=== PATIENT | male | born 1970 | race Caucasian/White ===

== ENCOUNTER 2016-10-14 15:42 | Emergency (ER) | payer OTHER ==
[~2016-10-14] VITALS: Ht 172.7 cm; Wt 86.2 kg
[~2016-10-14 15:42] MED LIST: BICALUTAMIDE50 M1 PO; CALCIUM600 M2 PO; CEFAZOLIN2 GM/100 M IV; DEXAMETHASONE4 M1 PO; NYSTATIN100000 UNI PO; OMEPRAZOLE20 M2 PO; ONDANSETRON HCL8 MG PO; PERCOCET 5-3251 EACH PO; PERIDEX473 ML PO; TAMSULOSIN HCL0.4 M1 PO; VITAMIN A & D56.7 GM TOP; VITAMIN D3400 UNI1 PO
[2016-10-14 15:50] VITALS: BP 115/80
--- NOTE | 2016-10-14 16:42 | ED ANKLE/FOOT INJURY COMPLAINT ---
History of Present Illness General Chief Complaint: Lower Extremity Problems Stated Complaint: PT HURT HIS LT FOOT Source: patient Exam Limitations: no limitations Vital Signs & Intake/Output Vital Signs & Intake/Output Vital Signs Date Time Temp Pulse Resp B/P B/P Pulse O2 O2 Flow FiO2 Mean Ox Delivery Rate 10/14 1550 97.1 82 16 115/80 96 Room Air Allergies Coded Allergies: No Known Drug Allergies (12/26/15) Reconcile Medications Hydrocodone/Acetaminophen (Hydrocodon-Acetaminophen 5-325) 5 MG-325 MG TABLET 1-2 TAB PO Q4-6 PRN PRN pain Indomethacin 50 MG CAPSULE 1 CAP PO TID pain with food Methylprednisolone. (Medrol) 4 MG TAB.DS.PK 1 DP PO AD gouty 6 on day 1 then reduce by one tablet daily until gone Pantoprazole Sodium 40 MG TABLET.DR 1 TAB PO PRN GI (Reported) Triage Note: PT STATES HIS LEFT FOOT IS "KILLING HIM". BUT STATES HIS BUNION HAS BEEN KILLING HIM STATES SINCE YESTERDAY HE WAS HAVING TROUBLE STANDING ON HIS FOOT. PT DENIES ANY INJURY Triage Nurses Notes Reviewed? yes Occurred: just prior to arrival Duration: day(s):, constant, continues in ED Timing: recent history Severity: moderate, severe Pain/Injury Location: Left: 1st toe. Method of Injury: unknown No Modifying Factors: none HPI: 45 year male comes into emergency room with complaints of left great toe pain. Patient reports that he is had issues with this toe for many years since his early 20s. Patient has some swelling to the area with a mild amount of redness. Sharp pain. Continuous. Nonradiating. Denies any fever or chills. Denies any vomiting. Denies any prior history of gout. (TAE ERVIN) Past History Travel History Traveled to [place] past 21 day No Medical History Any Pertinent Medical History? see below for history Neurological: NONE EENT: NONE Cardiovascular: NONE Respiratory: NONE Gastrointestinal: GERD, hiatal hernia Hepatic: NONE Renal: NONE Musculoskeletal: NONE Psychiatric: NONE Endocrine: NONE Blood Disorders: NONE Cancer(s): prostate cancer, SPINE AND SKULL LESIONS PUBLIC HEALTH PHYSICIAN/Reproductive: NONE History of MRSA: No History of VRE: No History of CDIFF: No Surgical History Surgical History: HERNIA REPAIR Psychosocial History Who do you live with Significant Other What is your primary language Colombian Tobacco Use: Current Daily Use Daily Tobacco Use Amount/Type: => 5 Cigarettes daily ETOH Use: occasional use Illicit Drug Use: denies illicit drug use Family History Hx Contributory? No (TAE ERVIN) Review of Systems Review of Systems Constitutional: Reports: no symptoms. EENTM: Reports: no symptoms. Respiratory: Reports: no symptoms. Cardiovascular: Reports: no symptoms. GI: Reports: no symptoms. Genitourinary: Reports: no symptoms. Musculoskeletal: Reports: see HPI. Skin: Reports: see HPI. Neurological/Psychological: Reports: no symptoms. Hematologic/Endocrine: Reports: no symptoms. Immunologic/Allergic: Reports: no symptoms. All Other Systems: Reviewed and Negative (TAE ERVIN) Physical Exam Physical Exam General Appearance: well developed/nourished, mild distress Head: atraumatic Eyes: Bilateral: normal appearance. Ears, Nose, Throat: normal ENT inspection, hearing grossly normal Neck: normal inspection Cardiovascular/Respiratory: no respiratory distress Back: normal inspection Leg/Knee/Thigh Left: normal range of motion Ankle Left: normal inspection, normal range of motion Foot Left: soft tissue tenderness, swelling, mild erythema left great toe, full range of motion, tenderness over joint and with light touch is skin, no warmth, Neuro/Vascular: normal motor function, normal sensation Psychiatric: awake, alert, oriented x 3 Skin: intact, normal color, warm/dry (TAE ERVIN) Progress Differential Diagnosis: arterial insufficiency, cellulitis, septic arthritis, gout, fracture, sprain, contusion, compartmental syndrome Plan of Care: Orders Procedure Date/time Status XRY-FOOT COMPLETE, LEFT 10/14 1640 Active Diagnostic Imaging: Viewed by Me: Radiology Read. Discussed w/RAD: Radiology Read. Radiology Impression: EXAM TYPE: RAD - XRY-FOOT COMPLETE, LEFT EXAMINATION: XR FOOT, LEFT CLINICAL INFORMATION: Pain status post post trauma. COMPARISON: None TECHNIQUE: AP, lateral, and oblique views of the left foot. FINDINGS: Bone mineral density is maintained without evidence of fracture or dislocation. No focal osseous lesions are seen. There is moderate first MTP joint space narrowing with moderate-sized marginal osteophytes identified. IMPRESSION: First MTP degenerative changes. DICTATED BY: GITA SMITH MD DATE/TIME DICTATED:1699 HYDRO EXCAVATION OPERATOR:BRODY DATE/TIME TRANSCRIBED:10/14/161699 Comments: 10/14/2016 6:05:39 PM Patient clinically looks well. Patient is in no apparent distress. Patient is nontoxic-appearing. Patient is in no apparent distress. Symptoms are more consistent with acute gouty arthritis as opposed to septic joint. Characteristic is more consistent with out. Patient needs close follow-up. Told to return if any spreading of redness or fever chills body aches. Return if any other concerns. (KIT HADLEY,TAE) Departure Departure Disposition: HOME OR SELF CARE Condition: Stable Clinical Impression Primary Impression: Acute gouty arthritis Referrals: CALVIN ALDANA MD (PCP/Family) Additional Instructions: Take indomethacin, Medrol Dosepak, and Vicodin as prescribed. Follow-up with primary care doctor. Have recheck in 3-5 days. Return if any spreading of redness, fever, vomiting, or any other concerns worsening symptoms. Please go over all results of today's visit with your primary care doctor. Contact your primary care doctor to let them know you were here in the emergency room. There may be nonspecific findings which may not be related to your visit today here in the emergency room but may require further evaluation and chronic monitoring by your primary care doctor. If you had a laceration today the chance of foreign body always remains. You should follow-up with your primary care doctor for recheck in 3-5 days for a wound check. If you had an x-ray done there is a chance that a fracture could have been missed on initial read and you should follow-up with your primary care doctor for repeat x-rays if symptoms persist. If your blood pressure was elevated here in the emergency room please have rechecked by her primary care doctor within the next 48 hours by your primary care doctor. If you were prescribed a narcotic here in the emergency room or any type of controlled substances you're not allowed to drive while taking this medication or operate any type of heavy machinery. Narcotics can make you feel lightheaded dizziness nausea and can cause constipation. You may need to pickling tank operator a stool softener. Thank you for choosing [facility] emergency room. Please return to the emergency room immediately if you have any other concerns worsening of symptoms. Departure Forms: Customer Survey General Discharge Information Prescriptions: Current Visit Scripts Indomethacin 1 CAP PO TID #30 CAP with food Methylprednisolone. (Medrol) 1 DP PO AD #1 DP 6 on day 1 then reduce by one tablet daily until gone Hydrocodone/Acetaminophen (Hydrocodon-Acetaminophen 5-325) 1-2 TAB PO Q4-6 PRN PRN pain #10 TAB (TAE ERVIN) PA/SAW TAILER Co-Sign Statement Statement: ED Attending supervision documentation- [] I saw and evaluated the patient. I have also reviewed all the pertinent lab results and diagnostic results. I agree with the findings and the plan of care as documented in the PA's/SAW TAILER's documentation. [X] I have reviewed the ED Record and agree with the PA's/SAW TAILER's documentation. [] Additions or exceptions (if any) to the PAs/SAW TAILER's note and plan are summarized below: [] (FLORENCE BURDEN,PAULO)
--- NOTE | 2016-10-14 17:05 | RADIOLOGY REPORT ---
EXAMINATION: XR FOOT, LEFT CLINICAL INFORMATION: Pain status post post trauma. COMPARISON: None TECHNIQUE: AP, lateral, and oblique views of the left foot. FINDINGS: Bone mineral density is maintained without evidence of fracture or dislocation. No focal osseous lesions are seen. There is moderate first MTP joint space narrowing with moderate-sized marginal osteophytes identified. IMPRESSION: First MTP degenerative changes.
[2016-10-14] MEDS ORDERED: PANTOPRAZOLE SO40 M1 PO (17:09)
[2016-10-14] MEDS ORDERED: HYDROCODON-ACE1 EAC2 PO (17:18)
[2016-10-14] MEDS ORDERED: INDOMETHACIN50 M1 PO (17:18)
[2016-10-14] MEDS ORDERED: MEDROL4 M2 PO (17:18)
== END 2016-10-14 17:27 ==
LOC: ERH 15:42
DX: M10.9 Gout, unspecified (principal)
CPT/HCPCS: 73630-LT

== ENCOUNTER 2017-10-09 15:29 | Observation (INO) | payer OTHER ==
[~2017-10-09] VITALS: Ht 172.7 cm; Wt 90.7 kg
[~2017-10-09 15:29] MED LIST changes: +HYDROCODON-ACE1 EAC2 PO; +INDOMETHACIN50 M1 PO; +MEDROL4 M2 PO; +PANTOPRAZOLE SO40 M1 PO
--- NOTE | 2017-10-09 16:17 | ED GENERAL ADULT ---
History of Present Illness General Chief Complaint: Low Back Pain/Injury Stated Complaint: BIBA FOR BACK PAIN, BILATERAL LEG WEAKNESS Source: patient Exam Limitations: no limitations Vital Signs & Intake/Output Vital Signs & Intake/Output Vital Signs Date Time Temp Pulse Resp B/P B/P Pulse O2 O2 Flow FiO2 Mean Ox Delivery Rate 10/10 1036 98.0 82 18 155/72 98 Room Air 10/10 0652 97.8 73 16 145/76 97 Room Air Room Air 10/10 0134 98.1 94 18 135/65 95 Room Air 10/09 2258 Room Air 10/09 2243 98.4 81 18 126/70 96 Room Air 10/09 2004 79 18 160/74 94 Room Air 10/09 1930 Room Air 10/09 1854 74 18 153/80 96 Room Air 10/09 1733 68 18 141/73 95 Room Air 10/09 1647 94 Room Air 10/09 1600 Room Air 10/09 1540 98.7 10/09 1537 Room Air 10/09 1537 84 18 145/110 97 Room Air ED Intake and Output 10/10 0000 10/09 1200 Intake Total Output Total Balance Patient 200 lb Weight Weight Estimated Measurement Method Allergies Coded Allergies: No Known Drug Allergies (12/26/15) Triage Note: PT COMING FROM WORK WHERE HE WAS LYING DOWN, AND C/O OF WEAKNESS IN HIS LEGS. PT WAS DX WITH PROSTATE CA 2 YEARS AGO, 1 WEEK AGO PT WAS DX WITH METS TO SPINE. NO LOSS OF BLADDER OR BOWEL FUNCTION. STILL ABLE TO WALK, STATES JUST FEELS WEAK. HAS SCRIPT FOR OXY FILLED 90 TABS LAST WEEKEND, BOTTLE EMPTY. Triage Nurses Notes Reviewed? 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 Patient was diagnosed with prostate cancer 2 years ago. He was diagnosed with metastasis to his spine several weeks ago after he had complained of back pain. He states that this back pain is continued to worsen especially over the past several days to the point where he is having difficulty walking and weakness in his legs. He states that at one point while he was walking his legs gave out causing him to fall. He reports pain in his left ankle after the fall. He states that he was unable to walk around his house and upstairs today due to pain and weakness. He is concerned he may fall if he walks. He's had a lot of imaging of his back recently including an MRI and bone scan as well as CT scans that showed diffuse metastatic disease. He is in the process of seeing a radiation oncologist on Thursday. He's been taking oxycodone for pain without any improvement. He denies any bowel or bladder dysfunction, saddle paresthesias, abdominal pain, fever, chest pain, shortness of breath. (Jozef Rodgers) Reconcile Medications Abiraterone Acetate (Zytiga) 250 MG TABLET 4 TAB PO DAILY PROSTATE CANCER ( Reported) Calcium Carbonate/Vitamin D3 (Calcium 500 + Vit D 400 Tablet) (Unknown Strength) TABLET (Unknown Dose) PO DAILY SUPPLEMENT (Reported) Dexamethasone 4 MG TABLET 1 TAB PO Q6H STEROID (Reported) Dexamethasone 4 MG TABLET 1 TAB PO Q6H BACK PAIN Oxycodone HCl/Acetaminophen (Oxycodone-Acetaminophen 5-325) 5 MG-325 MG TABLET 1-2 TAB PO Q6H PRN PAIN (Reported) Oxycodone HCl/Acetaminophen (Percocet 10-325 MG Tablet) 10 MG-325 MG TABLET 1 TAB PO 4 TIMES/DAY PRN SEVERE PAIN Pantoprazole Sodium 40 MG TABLET.DR 1 TAB PO PRN GI (Reported) (Perry BURDEN,Asad Khan) Past History Travel History Traveled to [place] past 21 day No Medical History Any Pertinent Medical History? see below for history Neurological: NONE EENT: NONE Cardiovascular: NONE Respiratory: NONE Gastrointestinal: GERD, hiatal hernia Hepatic: NONE Renal: NONE Musculoskeletal: NONE Psychiatric: NONE Endocrine: NONE Blood Disorders: NONE Cancer(s): prostate cancer, SPINE AND SKULL LESIONS STRAIGHT EDGER/Reproductive: NONE History of MRSA: No History of VRE: No History of CDIFF: No Surgical History Surgical History: HERNIA REPAIR Psychosocial History Who do you live with Significant Other What is your primary language Kazakh Tobacco Use: Current Daily Use Daily Tobacco Use Amount/Type: => 5 Cigarettes daily ETOH Use: occasional use Illicit Drug Use: cocaine Family History Hx Contributory? No (Jozef Rodgers) Review of Systems Review of Systems Constitutional: Reports: no symptoms. EENTM: Reports: no symptoms. Respiratory: Reports: no symptoms. Cardiovascular: Reports: no symptoms. GI: Reports: no symptoms. Genitourinary: Reports: no symptoms. Musculoskeletal: Reports: see HPI, back pain, muscle pain, muscle stiffness. Skin: Reports: no symptoms. Neurological/Psychological: Reports: no symptoms. Hematologic/Endocrine: Reports: no symptoms. Immunologic/Allergic: Reports: no symptoms. All Other Systems: Reviewed and Negative (Jozef Rodgers) Physical Exam Physical Exam General Appearance: well developed/nourished, no apparent distress, alert, awake Head: atraumatic, normal appearance Eyes: Bilateral: normal appearance, PERRL, EOMI. Ears, Nose, Throat: hearing grossly normal Neck: normal inspection, supple, full range of motion Respiratory: normal breath sounds, chest non-tender, no respiratory distress, lungs clear Cardiovascular: regular rate/rhythm, normal peripheral pulses Peripheral Pulses: 2+ radial (R), 2+ radial (L) Gastrointestinal: soft, non-tender Rectal: normal exam, normal rectal tone Back: normal inspection, decreased range of motion, no vertebral tenderness, no step-offs or deformities. No rashes. Range of motion of the back is reduced due to pain. There is no palpable tenderness or deformity. Extremities: normal inspection, no edema, active range of motion of the bilateral lower extremities is reduced due to pain. straight leg raise is negative bilaterally. No saddle paresthesias. Neurovascular supply intact the bilateral lower extremities Neurologic/Psych: no motor/sensory deficits, awake, alert, normal mood/affect, motor weakness (bilateral lower extremities), strength in the bilateral lower extremities is 3 out of 5 Reflexes: 1+: knee (R), knee (L). Skin: intact, normal color, warm/dry Lymphatic: no anterior cervical mara Core Measures ACS in differential dx? No CVA/TIA Diagnosis: No Sepsis Present: No Sepsis Focused Exam Completed? No (Jozef Rodgers) Progress Differential Diagnoses I considered the following diagnoses in my evaluation of the patient: [Cauda equina, metastatic disease to the spine, metastatic infiltration of the spine cord, muscle strain, herniated disc] Plan of Care: Orders Procedure Date/time Status Regular Diet 10/10 B Active Discharge Patient 10/10 1248 Active Gait Training, 15 Min 10/10 UNK Complete PT EVAL LOW COMPLEX 20 MIN 10/[address] in observation 10/09 2232 Active Patient Data 10/09 2232 Active PT Evaluate & Treat 10/09 2118 Active CASE MANAGEMENT CONSULT 10/09 2118 Active Saline Lock 10/10 2055 Active Misc Message 10/10 2055 Active ED Holding Orders 10/10 2055 Active Vital Signs 10/10 2055 Active Code Status 10/10 2055 Active URINALYSIS 10/09 1744 Complete TROPONIN LEVEL 10/09 161 Complete LACTIC ACID 10/09 161 Complete COMPREHENSIVE METABOLIC PANEL 10/09 161 Complete CBC WITHOUT DIFFERENTIAL 10/09 161 Complete Intake & Output 10/09 1540 Active Current Medications Sig/Lindsay Start time Last Medication Dose Stop Time Status Admin Morphine Sulfate 6 MG Q4P PRN 10/10 0215 AC 10/10 (Morphine) 0656 Oxycodone/ 2 TAB Q4P PRN 10/10 0215 AC 10/10 Acetaminophen 1128 (Percocet) Dexamethasone 4 MG Q6 10/09 2359 AC 10/10 (Decadron) 1128 Laboratory Tests 10/09/17 1915: Lactic Acid Cancelled 10/09/17 1849: Urine Color YEL, Urine Clarity CLEAR, Urine pH 6.5, Ur Specific [place] 1.015, Urine Protein NEG, Urine Ketones NEG, Urine Nitrite NEG, Urine Bilirubin NEG, Urine Urobilinogen 4.0 H, Ur Leukocyte Esterase NEG, Ur Microscopic EXAM NOT REQUIRED, Urine Hemoglobin NEG, Urine Glucose NEG 10/09/17 1630: Anion Gap 7, Estimated GFR > 60, BUN/Creatinine Ratio 25.7 H, Glucose 91, Lactic Acid 1.1, Calcium 9.7, Total Bilirubin 0.9, AST 27, ALT 37, Alkaline Phosphatase 104, Troponin I < 0.01, Total Protein 6.4, Albumin 3.9, Globulin 2.5 , Albumin/Globulin Ratio 1.6, CBC w Diff NO MAN DIFF REQ, RBC 4.57 L, MCV 88.3, MCH 30.9, MCHC 35.0, RDW 14.2, MPV 6.2 L, Gran % 79.9 H, Lymphocytes % 12.4 L , Monocytes % 7.3, Eosinophils % 0.2, Basophils % 0.2, Absolute Granulocytes 11.1 H, Absolute Lymphocytes 1.7, Absolute Monocytes 1.0 H, Absolute Eosinophils 0, Absolute Basophils 0 Patient is here with worsening pain in his lower back and lower extremity weakness. He has a history of diffuse metastatic disease to his spine. Does not appear to be any evidence of cauda equina on exam. He has good rectal tone he has no saddle paresthesias no bowel or bladder dysfunction. He does have weakness in the bilateral lower extremities compared to the upper extremities. He is having difficulty walking. His pain is not controlled. Spoke with Dr. Escamilla who recommended the patient get a MRI if this is not available a CT of the lumbar spine. He also recommends IV steroids IV narcotics. IV morphine IV Medrol ordered CT scan of the number spine with contrast ordered. See attached MRI that was done last week. CT scan of the lumbar spine shows diffuse metastatic disease. Full evaluation of the spinal cord is limited however there is no clinical evidence of cauda equina. Patient reports mild improvement after morphine but required multiple doses. Patient will be kept in the emergency department for observation. He'll have IV morphine IV steroids. He'll see physical therapy in the morning. Case discussed with Dr. Amador he agrees. Diagnostic Imaging: Viewed by Me: Radiology Read, CT Scan. Discussed w/RAD: Radiology Read, CT Scan. Radiology Impression: PATIENT: ALEXIA DUPONT PRESENT AGE: 46 PATIENT ACCOUNT NO: [id number] : 69 LOCATION: [facility] ORDERING PHYSICIAN: Jozef HADLEY SERVICE DATE: 10/09/17 EXAM TYPE: RAD - XRY-ANKLE 3 OR MORE VIEWS L EXAMINATION: XR ANKLE, LEFT CLINICAL INFORMATION: Lateral ankle pain after fall. COMPARISON: Left foot x-ray September 2016 TECHNIQUE: AP, lateral, and mortise views of the left ankle. FINDINGS: There is circumferential mild generalized soft tissue swelling. There is a tiny plantar calcaneal spur unchanged. The bones joints are otherwise normal IMPRESSION: Generalized soft tissue swelling. No fracture. DICTATED BY: Darrin Price MD DATE/TIME DICTATED:10/09/171803 TOBACCO GROWER:BRODY PATIENT: ALEXIA DUPONT PRESENT AGE: 46 PATIENT ACCOUNT NO : [id number] : 69 LOCATION: ER ORDERING PHYSICIAN: Jozef HADLEY SERVICE DATE: 10/09/17 EXAM TYPE: CAT - CT LUMB SPINE W IV CONTRAST EXAMINATION: CT LUMBAR SPINE WITH CONTRAST CLINICAL INFORMATION: Fracture. Metastatic disease. Prostate cancer. COMPARISON: CT abdomen pelvis 10/06/2017. Bone scan 10/06/2017. MRI lumbar spine 10/01/2017. TECHNIQUE: 95 mL Optiray 320 intravenous contrast. DLP: 1039 mGy-cm FINDINGS: Innumerable confluent sclerotic and lytic lesions are present throughout the visualized skeleton including within the lumbar vertebral bodies, visualized ribs, lower thoracic vertebral bodies and visualized pelvis. No vertebral body fractures are identified. No fractures of the visualized pelvis occluding the sacral ala are noted. The skeletal lesions are consistent with diffuse metastatic disease. Prevertebral soft tissue density is present along the ventral margins of the S2 and S3 vertebral bodies and is suspicious for extraosseous extension of tumor both in the presacral region and in the region of the sacral plexus related to the S2 and S3 nerve roots. Findings are asymmetrically more pronounced on the right ( axial image 398/440 series 3). No definitive extraosseous extension of tumor is noted within the central canal of the visualized lumbar and sacral spine though CT has limited sensitivity in the detection of this type of finding. No gross retroperitoneal lymphadenopathy is noted within the incidentally visualized retroperitoneum. No significant arthropathic changes of the visualized lumbar facets or sacroiliac joint are noted. IMPRESSION: 1. Diffuse metastatic disease throughout the visualized lumbar and sacral spine. No lumbar sacral fractures identified. 2. Findings suspicious for extraosseous extension of tumor along the ventral margin of the S2 and S3 vertebral bodies with tumor involving the sacral plexus including the S2 and S3 nerve roots bilaterally with findings most pronounced in the region of the right S2 nerve roots. Of note, MRI of the lumbar spine from 10/01/2017 demonstrated significant epidural tumor at the levels of L4 and L5. This current CT examination is insensitive in detecting epidural tumor. The presacral region noted on the current exam with findings suspicious for extraosseous tumor is outside the image [id number] on the comparison MRI of . DICTATED BY: Camilo Pulido MD DATE/TIME DICTATED:10/09/171917 TOBACCO GROWER:BRODY DATE/TIME TRANSCRIBED:10/09/171917 CONFIDENTIAL, DO NOT COPY WITHOUT APPROPRIATE AUTHORIZATION. Initial ED EKG: none Hand-Off Endorsed To: Asad Amador MD Endorsed Time: 2243 Pending: consult (PT), other (REEVAL) Comments: PATIENT: ALEXIA DUPONT PRESENT AGE: 46 PATIENT ACCOUNT NO: [id number] : 69 LOCATION: [facility] ORDERING PHYSICIAN: Karthikeyan Aggarwal MD SERVICE DATE: 10/01/17-7274 EXAM TYPE: MRI - MRI-CERVICAL W & W/O PERLA; MRI-LUMBAR SPINE W & W/O PERLA; MRI- THORACIC W & W/O PERLA Findings were discussed with Dr. Karthikeyan Aggarwal at 9:17 AM on 10/02/2017. Addendum Signed by: Taco Johnson MD 10/02/17 0919 MRI CERVICAL, THORACIC, AND LUMBAR SPINE WITH AND WITHOUT IV CONTRAST CLINICAL INFORMATION: Prostate cancer metastatic to bone/bone metastases. COMPARISON: Bone scan 05/21/2017 and lumbar spine MRI 01/03/2016. CT chest, abdomen, and pelvis 05/21/2017. TECHNIQUE: Multiplanar multisequence MR imaging of the cervical, thoracic, and lumbar spine obtained without and following the administration of 9 mL of Gadavist intravenous contrast without complication. FINDINGS: CERVICAL SPINE: There is diffuse marrow placement throughout the anterior and posterior elements of the entire cervical spine, the imaged skull base, and the clavicles in keeping with known treated osseous metastatic disease. No discrete enhancing lesions are identified within the cervical spine. There is no enhancing epidural disease within the cervical spine. Cervical cord morphology is normal. No cervical cord signal abnormality. There is no bone marrow edema. There are no acute fractures. The cervical arterial flow voids are maintained. There are no significant soft tissue findings. At C5-C6 there is a small annular disc bulge. There is no severe central canal stenosis and there is no severe foraminal stenosis within the cervical spine. THORACIC SPINE: There is diffuse heterogeneous marrow placement throughout the anterior and posterior elements of the entire thoracic spine. Heterogeneous enhancement is seen at multiple vertebral body levels, the greatest at the T2, T6, T8, T10, and T12 levels. There is small volume right anterior enhancing epidural tumor at T12 mildly indenting the right ventral thecal sac. There is no thoracic cord compression. No disc herniations. No central canal stenosis and no foraminal stenosis within the thoracic spine. Mediastinal and bilateral hilar lymphadenopathy is likely unchanged. LUMBAR SPINE: There is diffuse heterogeneous marrow placement exhibiting heterogeneous enhancement throughout the entire lumbar spine and partially imaged bony pelvis. There is nodular enhancing anterior epidural tumor at the L4, L5, and imaged sacral levels resulting in moderate central canal stenosis and mass effect on the traversing nerve roots bilaterally at L4, severe central canal stenosis with mass effect on the traversing nerve roots bilaterally at L5, and partial effacement of the epidural fat at the sacral levels. There is smaller volume right anterior epidural tumor at the L1 level mildly indenting the right ventral thecal sac. There are 5 nonrib-bearing lumbar-type vertebral bodies. Lumbar alignment is maintained. The vertebral body heights are preserved. There is increased signal on T1-weighted imaging throughout the L2 vertebral body, likely a treated metastasis. At L5-S1, there is a left lateral disc protrusion that results in moderate left-sided foraminal stenosis. Remaining lumbar disc contours are within normal limits. There is moderate bilateral facet arthropathy at L4-L5 and L5-S1. IMPRESSION: - Extensive heterogeneous marrow placement throughout the axial and imaged appendicular skeleton inclusive of the entire spinal axis in keeping with known osseous metastatic disease. - There is nodular enhancing anterior epidural tumor at the L4, L5, and imaged sacral levels resulting in moderate central canal stenosis and mass effect on the traversing nerve roots bilaterally at L4, severe central canal stenosis with mass effect on the traversing nerve roots bilaterally at L5, and partial effacement of the epidural fat at the sacral levels. There is mild paravertebral enhancing soft tissue tumor at L4 and L5. - There is smaller volume right anterior enhancing epidural tumor at the T12 and L1 levels that mildly indents the right ventral thecal sac at these levels. - Mediastinal and bilateral hilar lymphadenopathy is likely unchanged. Covering provider has been paged with these findings at 8:52 AM on 10/02/2017. DICTATED BY: Taco Johnson MD DATE/TIME DICTATED:10/02/17829 TOBACCO GROWER:BRODY DATE/TIME TRANSCRIBED:10/02/17829 CONFIDENTIAL, DO NOT COPY WITHOUT APPROPRIATE AUTHORIZATION. PATIENT: ALEXIA DUPONT PRESENT AGE: 46 PATIENT ACCOUNT NO: [id number] : 69 LOCATION: [facility] ORDERING PHYSICIAN: Karthikeyan Aggarwal MD SERVICE DATE: 10/06/17 EXAM TYPE: CAT - CT ABD & PELVIS W IV CONTRAST; CT CHEST W IV CONTRAST EXAMINATION: CT CHEST, ABDOMEN AND PELVIS WITH CONTRAST CLINICAL INFORMATION: 46-year-old male patient with metastatic prostate cancer. On therapy. Evaluate for response. Leg weakness. Patient states recent difficulty walking with weakness in legs. COMPARISON: Bone scan dated 10/06/2017. CT scan of the chest, abdomen and pelvis dated 05/21/2017 and 12/26/2015. CT guided bone biopsy dated 01/07/2016. TECHNIQUE: Multidetector CT helical images of the chest, abdomen and pelvis were performed following the administration of 95 mL of intravenous Optiray 320. The data set was reformatted in the coronal and sagittal planes and reviewed on an independent workstation. DLP: 789.82 mGy-cm. FINDINGS: CHEST: LUNGS: Again seen are innumerable bilateral scattered 2 to 4 mm solid noncalcified nodular densities in the lungs bilaterally, majority of which are based upon the pleural surfaces, some are based upon the fissures and a few are seen in the parenchyma of the right upper lobe (example series 4, images 186, 194, 195). There are also a few calcified granulomas seen (example right upper lobe, series 4, image 85). Findings are unchanged dating back to 12/26/2015. No suspicious new or enlarging pulmonary nodule or mass is seen. No effusion or pneumothorax is seen. There is a small amount of mucus or other debris seen in the dependent portion of the distal left mainstem bronchus. Central airways are otherwise patent. VASCULAR STRUCTURES: Aortic and heart size are normal. No pericardial effusion is seen. No significant coronary artery calcifications are noted. LYMPHATIC STRUCTURES: Again seen are multiple mediastinal lymph nodes, predominantly less than 1 cm in size. Abnormal 1.5 cm right lower paratracheal lymph node (series 2, image 23), unchanged. Abnormal subcarinal adenopathy, measuring up to 1.5 cm in short axis versus 1.8 cm previously Abnormal bilateral hilar lymph nodes again seen with largest right hilar lymph node mass (series 2, image 25) measuring 1.9 x 1.8 cm versus 2.8 x 2.2 cm (05/21/2017) and largest left hilar lymph node measuring 1.3 cm in short axis, unchanged.. No significant axillary adenopathy is present. THYROID GLAND: Unremarkable to the extent seen. BONES: Diffuse mottled sclerotic densities seen throughout the axial and imaged appendicular skeleton, consistent with diffuse metastatic disease, progressed when compared to 05/21/2017. ABDOMEN AND PELVIS: LIVER, GALLBLADDER, BILIARY TREE: Liver normal size and attenuation. There is a tiny 0.5 cm low-attenuation mass in hepatic segment 6 (series 2, image 56), unchanged from 05/21/2017 and not seen on prior noncontrast study from 12/26/2015. No new or enlarging focal cystic or solid mass or intra-or extrahepatic ductal dilatation. Hepatic and portal veins patent. The gallbladder partially distended and within normal limits. PANCREAS: Diffusely atrophic with fatty infiltration in the pancreatic head and proximal body noted. This appearance is unchanged from 05/21/2017, but is new compared to 12/26/2015. No ductal dilatation, mass, or surrounding stranding. SPLEEN: Normal size (12.3 cm longitudinally) and appearance. There is a 1.8 x 1.6 cm accessory splenule at the splenic hilar level. Splenic vein patent. ADRENAL GLANDS AND KIDNEYS: Adrenal glands normal. Kidneys bilaterally symmetric in size and function. No focal mass, hydronephrosis, nephrolithiasis or perinephric stranding. Of note, there are 3 new small 0.5 through 0.8 cm lymph nodes seen in the right perinephric space, adjacent to the upper pole of the right kidney. These are of uncertain significance. URETERS AND BLADDER: Ureters decompressed and within normal limits. Bladder partially distended and unremarkable. PELVIC VISCERA: Prostate gland and seminal vesicles unchanged in appearance. Dense calcification of the vas deferens bilaterally is noted. BOWEL LOOPS: Small and large bowel loops decompressed. A few scattered colonic diverticula are seen. Appendix in right lower quadrant normal. ABDOMINAL WALL: There is a small fat-containing umbilical hernia. Several injection granulomas are seen in the anterior abdominal wall. Slight dilatation of the inguinal rings bilaterally is seen. LYMPHOVASCULAR STRUCTURES: Abdominal aorta normal in caliber. No periaortic collections. No abdominal or pelvic adenopathy or free fluid collection. Of note, there is a tiny 0.6 cm lymph node seen in the left posterior flank at the pelvic inlet level (series 2, image 93), new compared to the prior exam. This is of doubtful clinical significance. Incidental note is again made of 2 left renal arteries and one right renal artery. BONES: Diffuse mottled sclerotic densities are seen throughout the axial and included appendicular skeleton, similar to slightly progressed compared to the previous exam. IMPRESSION: 1. The patient's prostate gland is not enlarged and while not adequately assessed on CT scan appears unchanged from prior studies. No periprostatic adenopathy is seen. 2. There is evidence for extensive bony metastatic disease, similar to minimally progressed compared to the prior exam. 3. Multiple abnormal mediastinal and bilateral hilar adenopathy is again seen, decreased in size compared to prior studies. Of note, there are a few new right perinephric and left lower flank subcentimeter sized lymph nodes, of uncertain clinical significance. 4. Stable pleural and fissural based nodules and right upper lobe parenchymal nodules, unchanged dating back to 12/26/2015, consistent with a benign finding. Given that some of the nodules are calcified, findings may be due to granulomatous lung disease. 5. Indeterminate 0.5 cm low-attenuation mass in hepatic segment 6, unchanged from 05/21/2017, likely an incidental finding of doubtful clinical significance. Continued attention on follow-up imaging is recommended. DICTATED BY: Lacy Barney MD DATE/TIME DICTATED:10/07/17815 TOBACCO GROWER:BRODY DATE/TIME TRANSCRIBED:10/07/17815 CONFIDENTIAL, DO NOT COPY WITHOUT APPROPRIATE AUTHORIZATION. <Electronically signed in Other Vendor System> SIGNED BY: Lacy Barney MD [id number] (Jozef Rodgers) Hand-Off Endorsed To: Taco Kim MD Endorsed Time: 0700 Pending: consult, other (Perry BURDEN,Asad Khan) Comments: 10/10/2017 9:16:04 AM patient signed out to me by Dr. 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 10/10/2017 12:48:55 PM Jordon has been evaluated by the physical therapist and felt to be stable for discharge with a walker to home. (Taco Kim MD) Departure Departure Condition: Stable Referrals: Uvaldo Davila MD (PCP/Family) Departure Forms: Customer Survey General Discharge Information Admission Note Documentation of Exam: Documentation of any treatments & extenuating circumstances including Concerns Regarding Discharge (functional status, medication knowledge or non-compliance, living conditions, etc.) that warrant an admission rather than observation: [IV pain meds, IV steroids, MRI, oncology consult, physical therapy] (Jozef Rodgers) PA/CHIEF OF POLICE Co-Sign Statement Statement: ED Attending supervision documentation- [x] I saw and evaluated the patient. I have also reviewed all the pertinent lab results and diagnostic results. I agree with the findings and the plan of care as documented in the PA's/CHIEF OF POLICE's documentation. 10/09/17, 20:25... pt with lower extermity weakness with evidence of compressing mass in lumbar spine... merits iv steroids, xrt consultation. after discussion with hospitalist, she prefers pt to be placed in ED obs. PT and case management to consult in AM. [] I have reviewed the ED Record and agree with the PA's/CHIEF OF POLICE's documentation. 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 Dexamethasone 1 TAB PO Q6H #40 TAB Oxycodone HCl/Acetaminophen (Percocet 10-325 MG Tablet) 1 TAB PO 4 TIMES/DAY PRN SEVERE PAIN #15 TAB (Judy BURDEN,Taco Corbin) Critical Care Note Critical Care Note Critical Care Time: non-applicable (Jozef Rodgers) ED Attending Observation Initial Observation Note: I have seen and personally examined ALEXIA DUPONT on 10/10/17 at 0003. I agree with the current emergency department documentation. The disposition (admission or discharge) is uncertain at this time, he needs a period of observation for the following reason(s): 10/09/17, 20:25... pt with lower extermity weakness with evidence of compressing mass in lumbar spine... merits iv steroids, xrt consultation. after discussion with hospitalist, she prefers pt to be placed in ED obs. PT and case management to consult in AM. The ED Nurse caring for this patient has been personally informed as to what the patient is being observed for. (Perry BURDEN,Asad Khan) Initial Observation Note: I have seen and personally examined ALEXIA DUPONT on 10/10/17 at 1250. I agree with the current emergency department documentation. The disposition (admission or discharge) is uncertain at this time, he needs a period of observation for the following reason(s): The ED Nurse caring for this patient has been personally informed as to what the patient is being observed for. Observation Discharge: I have reevaluated ALEXIA DUPONT on 10/10/17 at 1251. The patient is: ([x]): Stable for discharge (): To be admitted to Nursing Floor (): To be placed in Observation on Nursing Floor (): For transfer to other facility The patient was being observed for intractable back pain secondary to spinal metastases. As a result of that observation, I have determined the patient's pain has been controlled adequately and he is now stable for discharge to home. (Judy BURDEN,Taco Corbin)
[2017-10-09 16:45] LABS: ABSOLUTE BASOPHIL COUNT 0 /CUMM (0.0-0.2); ABSOLUTE EOSINOPHIL COUNT 0 /CUMM (0.0-0.7); ABSOLUTE GRANULOCYTE CT 11.1 /CUMM (1.4-6.5); ABSOLUTE LYMPH COUNT 1.7 /CUMM (1.2-3.4); BASOPHIL % 0.2 % (0.0-2.0); EOSINOPHIL % 0.2 % (0-5); GRANULOCYTE % 79.9 % (42.2-75.2); HEMATOCRIT 40.3 % (42-52); MEAN CORPUSCULAR HGB 30.9 PG (27.0-31.0); MEAN CORPUSCULAR VOLUME 88.3 FL (80.0-94.0); MEAN PLATELET VOLUME 6.2 FL (7.4-10.4); PLATELET COUNT 210 /CUMM (130-400); RBC DISTRIBUTION WIDTH 14.2 % (11.5-14.5); RED BLOOD CELL CT 4.57 /CUMM (4.70-6.10); WHITE BLOOD CELL COUNT 13.9 /CUMM (4.8-10.8)
--- NOTE | 2017-10-09 18:10 | RADIOLOGY REPORT ---
EXAMINATION: XR ANKLE, LEFT CLINICAL INFORMATION: Lateral ankle pain after fall. COMPARISON: Left foot x-ray September 2016 TECHNIQUE: AP, lateral, and mortise views of the left ankle. FINDINGS: There is circumferential mild generalized soft tissue swelling. There is a tiny plantar calcaneal spur unchanged. The bones joints are otherwise normal IMPRESSION: Generalized soft tissue swelling. No fracture.
--- NOTE | 2017-10-09 19:34 | CT SCAN REPORT ---
EXAMINATION: CT LUMBAR SPINE WITH CONTRAST CLINICAL INFORMATION: Fracture. Metastatic disease. Prostate cancer. COMPARISON: CT abdomen pelvis 10/06/2017. Bone scan 10/06/2017. MRI lumbar spine 10/01/2017. TECHNIQUE: 95 mL Optiray 320 intravenous contrast. DLP: 1039 mGy-cm FINDINGS: Innumerable confluent sclerotic and lytic lesions are present throughout the visualized skeleton including within the lumbar vertebral bodies, visualized ribs, lower thoracic vertebral bodies and visualized pelvis. No vertebral body fractures are identified. No fractures of the visualized pelvis occluding the sacral ala are noted. The skeletal lesions are consistent with diffuse metastatic disease. Prevertebral soft tissue density is present along the ventral margins of the S2 and S3 vertebral bodies and is suspicious for extraosseous extension of tumor both in the presacral region and in the region of the sacral plexus related to the S2 and S3 nerve roots. Findings are asymmetrically more pronounced on the right (axial image 398/440 series 3). No definitive extraosseous extension of tumor is noted within the central canal of the visualized lumbar and sacral spine though CT has limited sensitivity in the detection of this type of finding. No gross retroperitoneal lymphadenopathy is noted within the incidentally visualized retroperitoneum. No significant arthropathic changes of the visualized lumbar facets or sacroiliac joint are noted. IMPRESSION: 1. Diffuse metastatic disease throughout the visualized lumbar and sacral spine. No lumbar sacral fractures identified. 2. Findings suspicious for extraosseous extension of tumor along the ventral margin of the S2 and S3 vertebral bodies with tumor involving the sacral plexus including the S2 and S3 nerve roots bilaterally with findings most pronounced in the region of the right S2 nerve roots. Of note, MRI of the lumbar spine from 10/01/2017 demonstrated significant epidural tumor at the levels of L4 and L5. This current CT examination is insensitive in detecting epidural tumor. The presacral region noted on the current exam with findings suspicious for extraosseous tumor is outside the image [id number] on the comparison MRI of 10/01/2017.
[2017-10-09] MEDS ORDERED: ZYTIGA250 M1 PO (21:42)
[2017-10-09] MEDS ORDERED: DEXAMETHASONE4 M1 PO ×2 (21:43→23:05)
[2017-10-09] MEDS ORDERED: OXYCODONE-ACET1 EACH PO (21:44)
[2017-10-09] MEDS ORDERED: PANTOPRAZOLE SO40 M1 PO (21:45)
[2017-10-09] MEDS ORDERED: CALCIUM 500 +1 EAC1 PO (21:45)
[2017-10-09] MEDS ORDERED: PERCOCET 10-321 EACH PO (23:05)
[2017-10-10] MEDS ORDERED: RW (12:08)
[2017-10-10 12:52] VITALS: BP 162/82
[2017-10-10] MEDS ORDERED: PERCOCET 10-321 EACH PO (13:04)
== END 2017-10-10 13:30 ==
LOC: ERH 15:29 → ERHI 22:33
PROVIDERS: Physician Assistant Medical
DX: C79.51 Secondary malignant neoplasm of bone (principal); C61 Malignant neoplasm of prostate; K21.9 Gastro-esophageal reflux disease without esophagitis; F17.200 Nicotine dependence, unspecified, uncomplicated; Z72.89 Other problems related to lifestyle; R53.1 Weakness
CPT/HCPCS: 6090; 73610-LT; 81003; 96374; 96375; 96376; 97116-GP; 97161-GP; G0378; J1885; J2930